=== PATIENT | male | born 1995 | race Caucasian/White ===

== ENCOUNTER 2018-05-18 18:31 | Emergency (ER) | payer OTHER ==
[~2018-05-18] VITALS: Ht 190.5 cm; Wt 186.0 kg
[~2018-05-18 18:31] MED LIST: AMOXICILLIN875 MG PO; AUGMENTIN 875875 MG PO; AURALGAN OTIC S14 ML OT; CLEOCIN HCL150 MG PO; IBUPROFEN 800800 MG PO; LIDOCAINE VISC100 M1 MM; MEDROLDOSEPACK PO; NOHOMEMEDICATIONS; NORCO 5-325 TA1 EACH PO; PREDNISONE 20 M20 MG PO
[2018-05-18 19:31] LABS: ABSOLUTE BASOPHILS 0.1 thou/uL (0.0-0.2); ABSOLUTE EOSINOPHILS 0.3 thou/uL (0.0-0.7); ABSOLUTE LYMPHOCYTES 1.9 thou/uL (0.8-5.3); ABSOLUTE NEUTROPHILS 12.8 thou/uL (1.6-8.1); BASOPHILS 0.8 %; EOSINOPHILS 2.1 %; HEMATOCRIT 45.6 % (42.0-52.0); HEMOGLOBIN 15.4 gm/dL (14.0-18.0); LYMPHOCYTES 11.8 %; MCH 28.5 pg (26.0-34.0); MCHC 33.7 g/dL (28.0-37.0); MCV 84.5 fL (80.0-100.0); MPV 8.6 fl. (7.2-11.1); NUCLEATED RBCS 0 /100WBC; PLATELET COUNT* 259 thou/uL (150-400); POLYS 79.3 %; RDW-CV 13.1 % (10.5-14.5); WBC 16.1 thou/uL (4.0-11.0)
[2018-05-18 19:39] LABS: CREATININE 0.9 mg/dL (0.6-1.3); POTASSIUM 3.8 mmol/L (3.5-5.1)
[2018-05-18 19:44] LABS: ALBUMIN 3.8 g/dL (3.4-5.0); TOTAL BILIRUBIN 0.4 mg/dL (<0.1-1.0); TOTAL PROTEIN 7.3 g/dL (6.4-8.2)
[2018-05-18] MEDS ORDERED: PREDNISONE 20 M20 M1 PO (20:51)
[2018-05-18] MEDS ORDERED: ZPAK PO (20:51)
[2018-05-18] MEDS ORDERED: PROAIR HFA8.5 GM INH (20:51)
[2018-05-18 21:20] VITALS: BP 99/33
== END 2018-05-18 21:21 | disposition home or self-care (01) ==
LOC: M.ERS 18:31
PROVIDERS: Nurse Practitioner Family
DX: J20.9 Acute bronchitis, unspecified (principal); F17.210 Nicotine dependence, cigarettes, uncomplicated; Z88.8 Allergy status to other drugs, medicaments and biological substances

== ENCOUNTER 2019-02-25 18:06 | Emergency (ER) | payer OTHER ==
[~2019-02-25] VITALS: Ht 188 cm; Wt 177.4 kg
[~2019-02-25 18:06] MED LIST changes: +PREDNISONE 20 M20 M1 PO; +PROAIR HFA8.5 GM INH; +ZPAK PO
[2019-02-25 19:13] VITALS: BP 139/78
== END 2019-02-25 19:15 | disposition home or self-care (01) ==
LOC: M.ERS 18:06
DX: F17.210 Nicotine dependence, cigarettes, uncomplicated (principal); Z88.8 Allergy status to other drugs, medicaments and biological substances; S92.511A Displaced fracture of proximal phalanx of right lesser toe(s), initial encounter for closed fracture; X58.XXXA Exposure to other specified factors, initial encounter; Y93.89 Activity, other specified; Y92.89 Other specified places as the place of occurrence of the external cause; Y99.8 Other external cause status

== ENCOUNTER 2019-05-12 20:19 | Emergency (ER) | payer OTHER ==
[~2019-05-12] VITALS: Ht 188 cm; Wt 181.4 kg
[2019-05-12] MEDS ORDERED: MEDROLDOSEPACK PO (21:47)
[2019-05-12] MEDS ORDERED: KEFLEX500 M1 PO (21:47)
[2019-05-12 22:10] VITALS: BP 144/96
== END 2019-05-12 22:12 | disposition home or self-care (01) ==
LOC: M.ERS 20:19
DX: S30.861A Insect bite (nonvenomous) of abdominal wall, initial encounter (principal); T78.40XA Allergy, unspecified, initial encounter; F17.210 Nicotine dependence, cigarettes, uncomplicated; Z88.8 Allergy status to other drugs, medicaments and biological substances; S30.1XXA Contusion of abdominal wall, initial encounter; W57.XXXA Bitten or stung by nonvenomous insect and other nonvenomous arthropods, initial encounter; Y92.89 Other specified places as the place of occurrence of the external cause; Y93.89 Activity, other specified; Y99.8 Other external cause status

== ENCOUNTER 2021-03-04 17:41 | Emergency (ER) | payer OTHER ==
[~2021-03-04] VITALS: Ht 193 cm; Wt 186.0 kg
[~2021-03-04 17:41] MED LIST changes: +KEFLEX500 M1 PO
[2021-03-04 19:31] VITALS: BP 144/78
--- NOTE | 2021-03-06 09:40 | EKG ---
[place] [address] ELECTROCARDIOGRAM REPORT Name: YECENIA GARRETT Room: [facility]#: [id number] Admission: 03/04/21 Attend Phys: Discharge: 03/04/21 Date of : 89 Date of Service: 03/04/211748 Report #: [id number] THIS REPORT FOR: //name// [facility] ED Test Date: 2021-03-04 Test Time: 17:49:26 Pat Name: YECENIA GARRETT Department: Room: Gender: [employer] Counselor: JOSE MANUEL : 1995 Requested By: Pieter Baker Order Number: [id number] MD: Adam Simeon Measurements Intervals [place] Rate: 100 P: 70 NE: 132 QRS: 14 QRSD: 108 T: 32 QT: 338 QTc: 436 Interpretive Statements Sinus tachycardia No previous ECG available for comparison Electronically Signed On 03-06-2021 9:40:11 CDT by Adam Simeon [email or web address] <ELECTRONICALLY SIGNED> By: Adam Simeon MD, [facility] 03/06/2140 48 174 Adam Simeon MD, FAC /EPI
== END 2021-03-04 19:31 | disposition home or self-care (01) ==
LOC: M.ERS 17:41
DX: R10.13 Epigastric pain (principal); R07.89 Other chest pain; F17.210 Nicotine dependence, cigarettes, uncomplicated; Z88.8 Allergy status to other drugs, medicaments and biological substances